=== PATIENT | female | born 1960 | race Caucasian/White ===

== ENCOUNTER 2017-08-23 21:34 | Inpatient (IN) | payer BC ==
[2017-08-23] MEDS ORDERED: RX INFO: IV CONTRAST WAS GIVEN 1 EACH MISC MISCELLANE PRN (22:36)
--- NOTE | 2017-08-23 23:03 | ED ---
General Adult HPI - General Chief complaint: Recheck/Abnormal Lab/Rx Stated complaint: significant wt loss lately Time Seen by Provider: 08/23/17 22:22 Source: patient, RN notes reviewed Mode of arrival: ambulatory Limitations: no limitations - History of Present Illness Initial comments: 57-year-old female presents for dramatic weight loss. Patient has lost many pounds over the last few months. They do not want that they state she was down to 75 pounds at home. She has not been to her doctor in over 10 years. She denies any pain or Legs. She states that she does eat. She denies any blood in the stool she denies any diarrhea. She denies any productive cough. She does state that she is a smoker. She states that besides some back spasm and pain she has no other issues. Family was concerned due to how much like that she has lost over the last 3 months.Patient denies any recent fever, chills, shortness of breath, chest pain, back pain, abdominal pain, nausea vomiting, numbness or tingling, dysuria or hematuria, constipation or diarrhea, headaches or visual changes, or any other current symptoms. - Related Data Allergies Allergy/AdvReac Type Severity Reaction Status Date / Time No Known Allergies Allergy Verified 08/23/17 21:59 Review of Systems ROS Statement: Those systems with pertinent positive or pertinent negative responses have been documented in the HPI. ROS Other: All systems not noted in ROS Statement are negative. Past Medical History Additional Past Medical History / Comment(s): alcohol syndrome. cleft palate. History of Any Multi-Drug Resistant Organisms: None Reported Past Surgical History: Tubal Ligation Additional Past Surgical History / Comment(s): cleft palate repair. Past Psychological History: Depression Smoking Status: Current every day smoker Past Alcohol Use History: None Reported Past Drug Use History: None Reported General Exam Limitations: no limitations General appearance: alert, cachectic Head exam: Present: atraumatic, normocephalic, normal inspection Eye exam: Present: normal appearance, PERRL, EOMI. Absent: scleral icterus, conjunctival injection, periorbital swelling ENT exam: Present: normal exam, mucous membranes moist Neck exam: Present: normal inspection. Absent: tenderness, meningismus, lymphadenopathy Respiratory exam: Present: normal lung sounds bilaterally. Absent: respiratory distress, wheezes, rales, rhonchi, stridor Cardiovascular Exam: Present: regular rate, normal rhythm, normal heart sounds. Absent: systolic murmur, diastolic murmur, rubs, gallop, clicks GI/Abdominal exam: Present: soft, normal bowel sounds. Absent: distended, tenderness, guarding, rebound, rigid Extremities exam: Present: normal inspection, full ROM, normal capillary refill. Absent: tenderness, pedal edema, joint swelling, calf tenderness Back exam: Present: normal inspection Neurological exam: Present: alert, oriented X3 Psychiatric exam: Present: normal affect, normal mood Skin exam: Present: warm, dry, intact, normal color. Absent: rash Course Vital Signs 08/23/17 08/23/17 08/23/17 21:52 22:37 23:35 Temperature 97.6 F Pulse Rate 107 H 97 95 Respiratory 24 18 18 Rate Blood Pressure 205/132 191/122 199/128 O2 Sat by Pulse 96 97 98 Oximetry 08/24/17 00:16 Temperature Pulse Rate 87 Respiratory 18 Rate Blood Pressure 187/116 O2 Sat by Pulse 96 Oximetry Medical Decision Making - Medical Decision Making 57-year-old female presents with dramatic weight loss. At this time patient's lab work and imaging has been reviewed. At this time patient continues to be in hypertensive urgency even with treatment. We will admit the patient she has no outpatient follow-up and she has had a dramatic weight loss. Patient is in agreement this plan with family. All questions have been answered. - Lab Data Result diagrams: 08/23/17 22:45 08/23/17 22:45 Lab Results 08/23/17 08/23/17 08/23/17 Range/Units 22:45 22:45 22:45 WBC 9.5 (3.8-10.6) k/uL RBC 3.87 (3.80-5.40) m/uL Hgb 12.5 (11.4-16.0) gm/dL Hct 38.2 (34.0-46.0) % MCV 98.6 (80.0-100.0) fL MCH 32.2 (25.0-35.0) pg MCHC 32.7 (31.0-37.0) g/dL RDW 13.0 (11.5-15.5) % Plt Count 534 H (150-450) k/uL Neutrophils % 70 % Lymphocytes % 21 % Monocytes % 5 % Eosinophils % 1 % Basophils % 1 % Neutrophils # 6.6 (1.3-7.7) k/uL Lymphocytes # 2.0 (1.0-4.8) k/uL Monocytes # 0.5 (0-1.0) k/uL Eosinophils # 0.1 (0-0.7) k/uL Basophils # 0.1 (0-0.2) k/uL PT 10.2 (9.0-12.0) sec INR 1.0 (<1.2) APTT 25.4 (22.0-30.0) sec Sodium 142 (137-145) mmol/L Potassium 4.1 (3.5-5.1) mmol/L Chloride 104 (98-107) mmol/L Carbon Dioxide 27 (22-30) mmol/L Anion Gap 11 mmol/L BUN 10 (7-17) mg/dL Creatinine 0.63 (0.52-1.04) mg/dL Est GFR (CKD-EPI)AfAm >90 (>60 ml/min/1.73 sqM) Est GFR (CKD-EPI)NonAf >90 (>60 ml/min/1.73 sqM) Glucose 95 (74-99) mg/dL Calcium 10.2 (8.4-10.2) mg/dL Phosphorus 3.5 (2.5-4.5) mg/dL Magnesium 2.2 (1.6-2.3) mg/dL Total Bilirubin 0.3 (0.2-1.3) mg/dL AST 20 (14-36) U/L ALT 16 (9-52) U/L Alkaline Phosphatase 113 (38-126) U/L Total Protein 7.6 (6.3-8.2) g/dL Albumin 4.0 (3.5-5.0) g/dL Urine Color Urine Appearance (Clear) Urine pH (5.0-8.0) Ur Specific [place] (1.001-1.035) Urine Protein (Negative) Urine Glucose (UA) (Negative) Urine Ketones (Negative) Urine Blood (Negative) Urine Nitrite (Negative) Urine Bilirubin (Negative) Urine Urobilinogen (<2.0) mg/dL Ur Leukocyte Esterase (Negative) 08/23/17 Range/Units 22:45 WBC (3.8-10.6) k/uL RBC (3.80-5.40) m/uL Hgb (11.4-16.0) gm/dL Hct (34.0-46.0) % MCV (80.0-100.0) fL MCH (25.0-35.0) pg MCHC (31.0-37.0) g/dL RDW (11.5-15.5) % Plt Count (150-450) k/uL Neutrophils % % Lymphocytes % % Monocytes % % Eosinophils % % Basophils % % Neutrophils # (1.3-7.7) k/uL Lymphocytes # (1.0-4.8) k/uL Monocytes # (0-1.0) k/uL Eosinophils # (0-0.7) k/uL Basophils # (0-0.2) k/uL PT (9.0-12.0) sec INR (<1.2) APTT (22.0-30.0) sec Sodium (137-145) mmol/L Potassium (3.5-5.1) mmol/L Chloride (98-107) mmol/L Carbon Dioxide (22-30) mmol/L Anion Gap mmol/L BUN (7-17) mg/dL Creatinine (0.52-1.04) mg/dL Est GFR (CKD-EPI)AfAm (>60 ml/min/1.73 sqM) Est GFR (CKD-EPI)NonAf (>60 ml/min/1.73 sqM) Glucose (74-99) mg/dL Calcium (8.4-10.2) mg/dL Phosphorus (2.5-4.5) mg/dL Magnesium (1.6-2.3) mg/dL Total Bilirubin (0.2-1.3) mg/dL AST (14-36) U/L ALT (9-52) U/L Alkaline Phosphatase (38-126) U/L Total Protein (6.3-8.2) g/dL Albumin (3.5-5.0) g/dL Urine Color Light Yellow Urine Appearance Clear (Clear) Urine pH 6.0 (5.0-8.0) Ur Specific [place] 1.005 (1.001-1.035) Urine Protein Negative (Negative) Urine Glucose (UA) Negative (Negative) Urine Ketones Negative (Negative) Urine Blood Negative (Negative) Urine Nitrite Negative (Negative) Urine Bilirubin Negative (Negative) Urine Urobilinogen <2.0 (<2.0) mg/dL Ur Leukocyte Esterase Negative (Negative) - Radiology Data Radiology results: report reviewed, image reviewed Disposition Clinical Impression: Hypertensive urgency, Failure to thrive Disposition: ADMITTED IP TO THIS [facility] Condition: Stable Referrals: None,Stated [Primary Care Provider] - 1-2 days Decision Date: 08/24/17 Decision Time: 00:22
[2017-08-23 23:04] LABS: Appearance,Urine Clear (Clear); Basophils # (A) 0.1 k/uL (0-0.2); Basophils % (A) 1 %; Bilirubin,Urine Negative (Negative); Blood,Urine Negative (Negative); Color,Urine Light Yellow; Eosinophils # (A) 0.1 k/uL (0-0.7); Eosinophils % (A) 1 %; Glucose,Urine (UA) Negative (Negative); HCT 38.2 % (34.0-46.0); HGB 12.5 gm/dL (11.4-16.0); Ketones,Urine Negative (Negative); Leukocyte Esterase,Urine Negative (Negative); Lymphocytes % (A) 21 %; MCH 32.2 pg (25.0-35.0); MCHC 32.7 g/dL (31.0-37.0); MCV 98.6 fL (80.0-100.0); Monocytes # (A) 0.5 k/uL (0-1.0); Monocytes % (A) 5 %; Neutrophils # (A) 6.6 k/uL (1.3-7.7); Neutrophils % (A) 70 %; Nitrite,Urine Negative (Negative); Platelet Count 534 k/uL (150-450); Protein,Urine Negative (Negative); RBC 3.87 m/uL (3.80-5.40); Specific Gravity,Urine 1.005 (1.001-1.035); Urobilinogen,Urine <2.0 mg/dL (<2.0); WBC 9.5 k/uL (3.8-10.6)
[2017-08-23 23:12] LABS: ALT 16 U/L (9-52); AST 20 U/L (14-36); Alkaline Phosphatase 113 U/L (38-126); Anion Gap 11 mmol/L; Blood Urea Nitrogen 10 mg/dL (7-17); Calcium 10.2 mg/dL (8.4-10.2); Carbon Dioxide 27 mmol/L (22-30); Chloride 104 mmol/L (98-107); Glucose 95 mg/dL (74-99); Magnesium 2.2 mg/dL (1.6-2.3); Phosphorus 3.5 mg/dL (2.5-4.5); Potassium 4.1 mmol/L (3.5-5.1); Sodium 142 mmol/L (137-145); Total Bilirubin 0.3 mg/dL (0.2-1.3); Total Protein 7.6 g/dL (6.3-8.2)
[2017-08-23 23:16] LABS: Partial Thromboplastin Time 25.4 sec (22.0-30.0); Prothrombin Time 10.2 sec (9.0-12.0)
--- NOTE | 2017-08-23 23:23 | XR ---
EXAMINATION TYPE: XR chest 2V DATE OF EXAM: 08/23/2017 COMPARISON: NONE HISTORY: Weight loss. Cough. TECHNIQUE: Frontal and lateral views of the chest are obtained. FINDINGS: There is no heart failure nor confluent pneumonic infiltrate. Heart size is normal. Thorac ic aorta is atheromatous. There is no pleural effusion. There is some mild linear density in the uppe r lobes consistent with fibrosis. The bony thorax appears intact. There is osteopenia. IMPRESSION: There is probably COPD and pulmonary fibrosis. No heart failure.
--- NOTE | 2017-08-23 23:27 | CT ---
EXAMINATION TYPE: CT abdomen pelvis w con DATE OF EXAM: 08/23/2017 COMPARISON: NONE HISTORY: significant weight loss in a month CT DLP: 312.80 mGycm Automated exposure control for dose reduction was used. TECHNIQUE: Helical acquisition of images was performed from the lung bases through the pelvis. CONTRAST: Performed without Oral Contrast and with IV Contrast, patient injected with 80 mL of Omnipaque 300. FINDINGS: Lung bases are clear. There is no pleural effusion. Heart size is normal. Gallbladder appears normal. Common bile duct is large and measures 1.4 cm. Gallbladder is not dilated . Spleen appears normal. There is no sign of a pancreatic mass. The intrahepatic bile ducts do not ap pear dilated. There is no adrenal mass. Kidneys show satisfactory contrast opacification. There is no hydronephrosi s. There is no retroperitoneal adenopathy. There is some retained fecal material throughout the colon . Abdominal aorta is atheromatous. I see no bony destructive process. There is no intestinal wall thi ckening. There are no dilated loops. There is no sign of free air. There is no ascites. Bladder diste nds smoothly. There is no evidence of a pelvic mass. Uterus is anteverted. There is a mild degenerati ve first degree L4-5 spondylolisthesis. I see no focal bone destruction. There is no sign of appendic itis.: IMPRESSION: ATHEROSCLEROTIC VASCULAR DISEASE. THERE IS A DILATED COMMON BILE DUCT BUT NO SIGNIFICANT ENLARGEMENT OF THE BILIARY INTRAHEPATIC BILE DUCTS. THIS COULD RELATE TO GALLBLADDER DYSFUNCTION. NO DISCRETE IVANIA ER MASS. NO SIGN OF ACUTE ABDOMEN AND PELVIS. MILD CONSTIPATIONBMB.
[2017-08-23] MEDS ORDERED: LABETALOL 5 MG/ML VIAL MDV IVP STA (23:33)
[2017-08-24] MEDS ORDERED: ENALAPRILAT 1.25 MG/ML 1 ML VIAL IVP PRN (00:20)
[2017-08-24] MEDS ORDERED: ONDANSETRON 4 MG/2 ML VIAL IVP PRN (00:27)
[2017-08-24] MEDS ORDERED: NALOXONE 0.4 MG/ML 1 ML VIAL IV PRN (00:27)
[2017-08-24] MEDS ORDERED: SODIUM CHLORIDE 0.9% 1,000 ML IV SCH (00:30)
[2017-08-24 00:40] LABS: Creatine Kinase 62 U/L (30-135)
[2017-08-24 00:52] LABS: Creatine Kinase MB 0.5 ng/mL (0.0-2.4); Troponin I <0.012 ng/mL (0.000-0.034)
[2017-08-24 01:33] VITALS: BMI 15.1
[2017-08-24] MEDS ORDERED: ALPRAZolam 0.25 MG TAB PO STA (02:00)
--- NOTE | 2017-08-24 04:55 | P.HPIM ---
History of Present Illness H&P Date: 08/24/17 Chief Complaint: weight loss 57-year-old female with past medical history of alcohol syndrome. Patient presented to the hospital after her daughter found out that the patient has lost significant amount of weight over the past year. Patient daughter indicated that she just had her daughter which is the patient and granddaughter diagnosed with celiac disease and she was concerned that her mom has similar condition. Her mom does not see a doctor and have not seen a doctor for 10 years now. The patient indicated that she has lost at least 25 pounds over the past year despite eating good amount of calories every day, however the daughter did indicate that her mom eats mainly junk food and highly processed foods and salty food. She has noticed some hair thinning, and loss of legs hair. Patient indicated that since the diagnosis of her granddaughter she has been eating gluten-free diet most of the time. Patient currently denies any physical complaints. Patient denies any headache any changes in her vision, denies any chest pain or trouble breathing, denies any abdominal pain nausea or vomiting, denies any diarrhea or constipation, denies any changes in her bowel habits or urinary habits, denies any vaginal bleeding or discharge, denies any focal neurologic deficits. Patient denies any bleeding tendencies, denies any hemoptysis or GI bleeding or melena. Patient does not up-to-date on Age-appropriate cancer screening, including mammograms, Pap smears, and colonoscopy. In the emergency department she was found to have elevated blood pressure, with some tachypnea and anxiety for which patient was admitted under observation for further monitoring and workup. Review of Systems Constitutional: Patient denies fever, denies chills, denies night sweating, significant weight loss unintentional of over 25 pounds over the past year Eyes: Patient denies visual changes, denies eye pain ENT: Patient denies ear pain, denies rhinorrhea, denies sore throat Cardiovascular: Patient denies chest pain, denies exertional dyspnea, denies peripheral leg edema, denies orthopnea, denies paroxysmal nocturnal dyspnea Respiratory:Patient denies cough, denies wheezing, denies shortness of breath Gastrointestinal: Patient denies diarrhea, denies constipation, denies nausea , denies vomiting, denies abdominal pain Genitourinary: Patient denies dysuria, denies hematuria, denies changes in urinary habits, denies genital lesions Musculoskeletal: Patient denies muscle pain, denies joint pain Psychiatric: Patient denies changes in mood or memory, denies suicidal ideation, denies anxiety Endocrine: Patient denies heat intolerance, denies cold intolerance, denies excessive thirst, denies polyuria Neurological: Patient denies focal neurologic deficits, denies weakness, denies numbness, denies tingling Hem/Lymphatic: Patient denies bleeding tendency, denies bruising, denies swollen lymph glands Allergic/Immun: Patient denies recent allergic reactions Skin: Patient denies rashes, denies pruritis, denies ulcers Past Medical History Additional Past Medical History / Comment(s): alcohol syndrome. cleft palate. History of Any Multi-Drug Resistant Organisms: None Reported Past Surgical History: Tubal Ligation Additional Past Surgical History / Comment(s): cleft palate repair. Past Psychological History: Depression Smoking Status: Current every day smoker Past Alcohol Use History: None Reported Past Drug Use History: None Reported - Past Family History Family Additional Family Medical History / Comment(s): Patient granddaughter diagnosed with celiac disease Medications and Allergies Home Medications and Allergies Comment(s): Patient reported none Allergies Allergy/AdvReac Type Severity Reaction Status Date / Time No Known Allergies Allergy Verified 08/23/17 21:59 Physical Exam Vitals: Vital Signs Temp Pulse Pulse Resp BP BP Pulse Ox 08/24/17 01:08 98.6 F 94 19 197/122 95 08/24/17 01:04 97.8 F 98 18 185/97 96 08/24/17 00:16 87 18 187/116 96 08/23/17 23:35 95 18 199/128 98 08/23/17 22:37 97 18 191/122 97 08/23/17 21:52 97.6 F 107 H 24 205/132 96 Intake and Output 08/23/17 08/23/17 08/24/17 14:59 22:59 06:59 Other: Weight 34.019 kg 35 kg Constitutional: No acute distress, conversant, pleasant, looks older than stated age, cachectic. Eyes: Anicteric sclerae, moist conjunctiva, no lid-lag Pupils equal round reactive to light ENMT: NC/AT Oropharynx clear, no erythema, exudates Neck: Supple, FROM, no masses, or JVD No carotid bruits No thyromegaly Lungs: Clear to auscultation Clear to percussion Normal respiratory effort, no accessory muscle use Cardiovascular: Heart regular in rate and rhythm, No murmurs, gallops, or rubs No peripheral edema Abdominal: Soft Nontender, no guarding, rebound or rigidity Abdomen moving with respiration Normoactive bowel sounds No hepatomegaly, No splenomegaly No palpable mass No abdominal wall hernia noted Skin: Normal temperature, tone, texture, turgor No induration No subcutaneous nodules No rash, lesions No ulcers Extremities: No digital cyanosis No clubbing Pedal pulses intact and symmetrical Radial pulses intact and symmetrical No calf tenderness Psychiatric: Alert and oriented to person, place and time Appropriate affect fair judgment Neuro Muscles Strength 5/5 in all 4 extremities Sensation to light touch grossly present throughout Cranial nerves II-XII grossly intact (except for eighth cranial nerve as patient is hard of hearing) No focal sensory deficits Lymphatics: no palpable cervical or supraclavicular , or inguinal lymph nodes Results CBC & Chem 7: 08/23/17 22:45 08/23/17 22:45 Labs: Abnormal Lab Results - Last 24 Hours (Table) 08/23/17 Range/Units 22:45 Plt Count 534 H (150-450) k/uL Thrombosis Risk Factor Assmnt - Choose All That Apply Any of the Below Risk Factors Present?: Yes Each Factor Represents 1 point: Age 41-60 years Other Risk Factors: No Other congenital or acquired thrombophilia - If yes, enter type in comment: No Thrombosis Risk Factor Assessment Total Risk Factor Score: 1 Thrombosis Risk Factor Assessment Level: Low Risk Assessment and Plan Assessment: 57-year-old female presented due to significant weight loss of 25 pounds over the past year unintentional weight loss, patient not up-to-date on age appropriate cancer screening testing. However she denies currently any physical complaints. Was admitted due to being found to have elevated blood pressure, anxiety, and tachypnea in the ER. She is admitted under observation for further workup (1) Hypertensive urgency Narrative/Plan: Consistently elevated blood pressure Patient has no prior diagnosis of hypertension however she does not follow up with any primary care physician Start patient on amlodipine, low dose diuretic Monitor blood pressure closely Currently asymptomatic Patient advised to low-salt diet DASH diet handout will be provided Current Visit: Yes Status: Acute Code(s): I16.0 - HYPERTENSIVE URGENCY SNOMED Code(s): 938025799 (2) Thrombocytosis Narrative/Plan: Currently of unknown significance, recommends outpatient follow-up Current Visit: Yes Status: Acute Code(s): D47.3 - ESSENTIAL (HEMORRHAGIC) THROMBOCYTHEMIA SNOMED Code(s): 2999994 (3) Failure to thrive Narrative/Plan: Unintentional weight loss of 25 pounds despite reported good by mouth intake Patient feels that she is eating her calories every day This need to be monitored closely Further workup for malabsorption should be performed as an outpatient especially with the recent diagnosis of her granddaughter with celiac disease. I advised the patient to eat regular diet at this time especially she was asymptomatic except for the weight loss. This will assist with proper diagnosis if she has an underlying celiac disease, especially if small bowel biopsy would be required Current Visit: Yes Status: Acute Code(s): RSZ6800 - SNOMED Code(s): 01388838 (4) Smoking Narrative/Plan: Counseled to quit smoking Dictating replacement therapy offered Current Visit: Yes Status: Acute Code(s): F17.200 - NICOTINE DEPENDENCE, UNSPECIFIED, UNCOMPLICATED SNOMED Code(s): 34312624 (5) DVT prophylaxis Narrative/Plan: Patient is low risk, continue with SCDs Current Visit: Yes Status: Acute Code(s): THK4635 - SNOMED Code(s): 119106736 Plan: Patient advised to establish a relationship with PCP. Daughter suggested her own PCP. Patient advised to get up-to-date on age appropriate cancer screening including but not limited to colonoscopy, mammogram, Pap smear, low-dose CAT scan of the chest due to her history of smoking. Surrogate decision-maker: Patient daughter CODE STATUS: Full code DVT prophylaxis: SCD Discussed with: Patient, ER, family, RN Anticipated discharge: [address]: Home A total of 50 minutes were spent on the care of this complex patient more than 50% of the time was spent in counseling and care coordination.
[2017-08-24 06:12] LABS: Creatine Kinase 49 U/L (30-135)
[2017-08-24 06:25] LABS: Creatine Kinase MB 0.4 ng/mL (0.0-2.4); Troponin I <0.012 ng/mL (0.000-0.034)
[2017-08-24] MEDS: amLODIPine 5 MG TAB PO SCH (09:07)
[2017-08-24] MEDS: NICOTINE 21MG/24HR PATCH TRANSDERM SCH (09:07)
[2017-08-24] MEDS: HYDROCHLOROTHIAZIDE 25 MG TAB PO SCH (09:07)
[2017-08-24 11:48] LABS: Creatine Kinase 55 U/L (30-135)
[2017-08-24 12:02] LABS: Creatine Kinase MB 0.4 ng/mL (0.0-2.4); Troponin I <0.012 ng/mL (0.000-0.034)
[2017-08-24] MEDS: ACETAMINOPHEN TAB 325 MG TAB PO PRN (18:14)
[2017-08-25] MEDS: ACETAMINOPHEN TAB 325 MG TAB PO PRN (00:12)
[2017-08-25 00:43] VITALS: RESP 18
[2017-08-25 06:37] LABS: Basophils # (A) 0.1 k/uL (0-0.2); Basophils % (A) 2 %; Eosinophils # (A) 0.1 k/uL (0-0.7); Eosinophils % (A) 2 %; HCT 41.6 % (34.0-46.0); HGB 13.4 gm/dL (11.4-16.0); Lymphocytes # (A) 2.2 k/uL (1.0-4.8); Lymphocytes % (A) 31 %; MCH 31.7 pg (25.0-35.0); MCHC 32.2 g/dL (31.0-37.0); MCV 98.5 fL (80.0-100.0); Mean Platelet Volume 6.7; Monocytes # (A) 0.6 k/uL (0-1.0); Monocytes % (A) 8 %; Neutrophils # (A) 3.8 k/uL (1.3-7.7); Neutrophils % (A) 55 %; Platelet Count 540 k/uL (150-450); RBC 4.22 m/uL (3.80-5.40); RDW 12.8 % (11.5-15.5); WBC 6.9 k/uL (3.8-10.6)
[2017-08-25 06:48] LABS: ALT 18 U/L (9-52); AST 19 U/L (14-36); Albumin 3.8 g/dL (3.5-5.0); Alkaline Phosphatase 96 U/L (38-126); Anion Gap 11 mmol/L; Blood Urea Nitrogen 11 mg/dL (7-17); Calcium 10.5 mg/dL (8.4-10.2); Carbon Dioxide 31 mmol/L (22-30); Chloride 97 mmol/L (98-107); Glucose 102 mg/dL (74-99); Potassium 4.2 mmol/L (3.5-5.1); Sodium 139 mmol/L (137-145); Total Bilirubin 0.2 mg/dL (0.2-1.3); Total Protein 6.9 g/dL (6.3-8.2)
[2017-08-25] MEDS: HYDROCHLOROTHIAZIDE 25 MG TAB PO SCH (08:11)
[2017-08-25] MEDS: amLODIPine 5 MG TAB PO SCH (08:11)
[2017-08-25] MEDS: NICOTINE 21MG/24HR PATCH TRANSDERM SCH (08:11)
--- NOTE | 2017-08-25 12:42 | P.DS ---
Providers Date of admission: 08/24/17 00:29 Expected date of discharge: 08/25/17 Attending physician: Mame Patricia MD Primary care physician: Stated None Hospital Course: 57-year-old female with past medical history of alcohol syndrome presented to the hospital after her daughter just found out that the patient has lost significant amount of weight over the past year. Patient daughter indicated that her daughter who is the patient's granddaughter was just diagnosed with celiac disease and she was concerned that her mom has similar condition. Patient did not see a doctor for the last 10 years. The patient indicated that she has lost at least 25 pounds over the past year despite eating good amount of calories every day, however the daughter did indicate that her mom eats mainly junk food and highly processed foods and salty food. She has noticed some hair thinning, and loss of legs hair. Upon presentation she denied any physical complaints. No headache, no changes in her vision, no chest pain or trouble breathing, denied any abdominal pain nausea or vomiting, denied any diarrhea or constipation, no changes in her bowel habits or urinary habits, no vaginal bleeding or discharge, no focal neurologic deficits. No hemoptysis or GI bleeding or melena. In the emergency department she was found to have elevated blood pressure, as high as 220 systolic with some tachypnea and anxiety. She was treated with some IV enalapril then she was admitted to the hospital for further evaluation. When she came up to the floor she was started on Norvasc and HCTZ for the blood pressure. Patient was encouraged to eat healthy foods that includes fruits and vegetables. She was advised to quit junk food. She was also told that she needed to follow-up with a primary care physician in order to establish care. She will likely need workup for celiac disease as well. Discharge diagnoses: Severe protein calorie malnutrition, severe weight loss Accelerated hypertension Patient Condition at Discharge: Stable Plan - Discharge Summary Discharge Rx Participant: No New Discharge Prescriptions: New Acetaminophen Tab [Tylenol] 650 mg PO Q6HR PRN tab PRN Reason: Mild Pain Or Fever > 100.5 amLODIPine [Norvasc] 5 mg PO DAILY #30 tab Hydrochlorothiazide [Hydrodiuril] 25 mg PO DAILY #30 tab Nicotine 21Mg/24Hr Patch [Habitrol] 1 patch TRANSDERM DAILY #15 patch Continue [facility] [employer] 2 tab PO Q4H PRN PRN Reason: Pain Discharge Medication List [facility] [employer] 2 tab PO Q4H PRN 08/24/17 [History] Acetaminophen Tab [Tylenol] 650 mg PO Q6HR PRN tab 08/25/17 [Rx] Hydrochlorothiazide [Hydrodiuril] 25 mg PO DAILY #30 tab 08/25/17 [Rx] Nicotine 21Mg/24Hr Patch [Habitrol] 1 patch TRANSDERM DAILY #15 patch 08/25/17 [ Rx] amLODIPine [Norvasc] 5 mg PO DAILY #30 tab 08/25/17 [Rx] Follow up Appointment(s)/Referral(s): Nicholas Steele MD [STAFF PHYSICIAN] - 1 Week None,Stated [Primary Care Provider] - 1-2 days Patient Instructions/Handouts: Celiac Disease (DC), Colonoscopy (DC), DASH Eating Plan (DC), Hypertensive Crisis (DC), Pap Smear (GEN), Mammogram (GEN), Lung Cancer Screening (GEN) Care Plan Goals (MU): Patient advised to get up-to-date on age appropriate cancer screening including but not limited to colonoscopy, mammogram, Pap smear, low-dose CAT scan of the chest due to her history of smoking. Discharge Disposition: HOME SELF-CARE
[2017-08-25 12:52] VITALS: BP 104/70; PULSE 94; TEMP 97.4
== END 2017-08-25 13:22 | disposition home or self-care (01) | DRG 304 ==
LOC: EC 21:34 → 6SEL 08-24 00:29
PROVIDERS: ADMIT Internal Medicine; ATTEND Internal Medicine
DX: I16.0 Hypertensive urgency (principal); E43 Unspecified severe protein-calorie malnutrition; Z68.1 Body mass index [BMI] 19.9 or less, adult; R62.7 Adult failure to thrive; F17.200 Nicotine dependence, unspecified, uncomplicated; F32.9 Major depressive disorder, single episode, unspecified; F41.9 Anxiety disorder, unspecified; I10 Essential (primary) hypertension; Z87.730 Personal history of (corrected) cleft lip and palate; D47.3 Essential (hemorrhagic) thrombocythemia
CPT/HCPCS: 36415; 71046; 74177; 80053; 81003; 82550; 82553; 83735; 84100; 84443; 84484; 85025; 85610; 85730; 93005; 96374; 99285

== ENCOUNTER → 2018-03-10 | Outpatient (CLI) | payer BC ==
--- NOTE | 2018-03-10 14:49 | XR ---
Right foot and right calcaneus HISTORY: Foot pain 2 views of the calcaneus and 3 views of the right foot submitted. Bone mineralization is reduced. Degenerative changes present at the first metatarsophalangeal joint w ith some suspected soft tissue swelling. There are some small ossific densities noted proximal to the sesamoid bones. No fracture or dislocation evident. There is a small plantar calcaneal spur present. Enthesophyte present at the insertion of the Achilles tendon. IMPRESSION: Osteoarthritis, plantar calcaneal spur is small. Osteopenia.
== END | disposition home or self-care (01) ==
LOC: RADXRMAIN 11:40
PROVIDERS: ATTEND Family Medicine
DX: M19.071 Primary osteoarthritis, right ankle and foot (principal); M77.31 Calcaneal spur, right foot; M85.871 Other specified disorders of bone density and structure, right ankle and foot